=== PATIENT | male | born 1930 | race Caucasian/White ===

== ENCOUNTER 2017-07-05 19:09 | Emergency (ER) | payer MEDICARE, BC ==
[2017-07-05 19:17] VITALS: TEMP 96.2
[2017-07-05] MEDS ORDERED: GELATIN SPONGE,ABSORB (SMALL) 1 EACH SPONGE TOPICAL STA ×2 (19:31→20:15)
--- NOTE | 2017-07-05 19:45 | ED ---
ENT HPI - General Chief complaint: ENT Stated complaint: Oral Bleeding Time Seen by Provider: 07/05/17 19:18 Source: patient, RN notes reviewed Mode of arrival: wheelchair Limitations: no limitations - History of Present Illness Initial comments: This is an 86-year-old male who presents to the emergency department with chief complaint of excessive bleeding due to recent dental work. Patient's is at bedside and contributes to history. states that at 9 AM patient had a tooth extraction by dentist, Dr. Mayo in [place]. states that patient stopped his Eliquis 1-1/2 weeks ago. After the procedure patient continued to have oral bleeding. They returned to the dentist later this afternoon and the dentist repacked the site. states that she has been changing out the gauze every 30 minutes due to active bleeding. Denies fever, chills, chest pain , shortness of breath, abdominal pain, nausea or vomiting, constipation or diarrhea, dysuria or hematuria, numbness or tingling, headache or vision changes. - Related Data Home Medications Medication Instructions Recorded Confirmed Acetaminophen Tab [Tylenol] 325 mg PO DIRECTED PRN 02/18/14 03/21/14 Atenolol 50 mg PO DAILY 02/18/14 03/21/14 Furosemide [Lasix] 40 mg PO DAILY 02/18/14 03/21/14 Levothyroxine Sodium [Synthroid] 125 mcg PO DAILY 02/18/14 03/21/14 Tamsulosin HCl [Flomax] 0.4 mg PO HS 02/18/14 03/21/14 Warfarin [Coumadin] 2.5 mg PO HS 02/18/14 03/19/14 hydrALAZINE HCL [Apresoline] 25 mg PO BID 02/18/14 03/21/14 Lovastatin [Mevacor] 40 mg PO DAILY 03/21/14 03/21/14 Allergies Allergy/AdvReac Type Severity Reaction Status Date / Time No Known Allergies Allergy Verified 07/05/17 19:17 Review of Systems ROS Statement: Those systems with pertinent positive or pertinent negative responses have been documented in the HPI. ROS Other: All systems not noted in ROS Statement are negative. Past Medical History Past Medical History: Asthma, Cancer, Diabetes Mellitus, Hearing Disorder / Deafness, Thyroid Disorder Additional Past Medical History / Comment(s): SEE DR GUNDLAPALLI H&P, HX PROSTATE CA History of Any Multi-Drug Resistant Organisms: None Reported Past Surgical History: Hernia Repair Additional Past Surgical History / Comment(s): RIGHT CAROTIDENTARCECTOMY X2, JERED HERNIA REPAIR, JERED CATARACT SX,SURGICAL REPAIR RT ARM Past Anesthesia/Blood Transfusion Reactions: No Reported Reaction Additional Past Anesthesia/Blood Transfusion Reaction / Comment(s): UNK FAMILY HX Past Psychological History: No Psychological Hx Reported Smoking Status: Former smoker General Exam - General Exam Comments Initial Comments: General: Awake and alert, well-developed; in no apparent distress. Lying on ED stretcher with at bedside. HEENT: Head atraumatic, normocephalic. Pupils are equal, round and reactive to light. Extraocular movements intact. Dried blood surrounding the lips. There is active bleeding from molar extraction site on bottom left of mouth. The gauze was removed and there was large clot present; gauze saturated in blood. Poor dentition. Neck: Supple. Normal ROM. Cardiovascular: Regular rate and rhythm. No murmurs, rubs or gallops. Chest symmetrical. Respiratory: Lungs clear to auscultation bilaterally. No wheezes, rales or rhonchi. Normal respiratory effort with no use of accessory muscles. Skin: [place], warm and dry without rashes or lesions. Neurological: Alert and oriented x3. CN II-XII grossly intact. Speech is fluent and answers are appropriate. No focal neuro deficits. Psychiatric: Normal mood and affect. No overt signs of depression or anxiety noted. Limitations: no limitations Course Vital Signs 07/05/17 07/05/17 19:14 20:20 Temperature 96.2 F L Pulse Rate 82 61 Respiratory 16 18 Rate Blood Pressure 124/59 129/66 O2 Sat by Pulse 100 94 L Oximetry - Reevaluation(s) Reevaluation #1: Gelfoam was placed at active bleeding site. Patient was instructed to bite down onto gauze and Gelfoam. On reevaluation, active bleeding has stopped. Will re-evaluate in 10-15 minutes. 07/05/17 20:02 07/05/17 20:25 There continues to be no active bleeding. Patient is doing well and is in no acute distress. Medical Decision Making - Medical Decision Making This is an 86-year-old male who presents to the emergency room with chief complaint of excessive mouth bleeding. Patient had a left lower molar extracted this morning and has had active bleeding ever since. reports he has been off of his Eliquis for the past week and a half. Gelfoam was placed at active bleeding site. On re-evaluation, bleeding has stopped. Patient will be discharged home with Gelfoam and gauze in mouth that he is to continue to apply pressure to. He is to follow-up with dentist tomorrow morning. Patient and are in agreement and voiced understanding. All questions were answered. Disposition Clinical Impression: Postoperative bleeding from mouth Disposition: HOME SELF-CARE Condition: Good Additional Instructions: Please follow up with your dentist Dr. Mayo tomorrow morning. Please leave in and apply pressure to Gelfoam and gauze as long as possible tonight. Please follow up with primary care provider within 1-2 days. Return to emergency department if symptoms should worsen or any concerns arise. Referrals: Luke Clayton MD [Primary Care Provider] - 1-2 days Time of Disposition: 20:30
[2017-07-05 20:23] VITALS: BP 129/66; PULSE 61; RESP 18
== END 2017-07-05 20:39 | disposition home or self-care (01) ==
LOC: EC 19:09
DX: K91.840 Postprocedural hemorrhage of a digestive system organ or structure following a digestive system procedure (principal); E07.9 Disorder of thyroid, unspecified; Z87.891 Personal history of nicotine dependence; Z79.01 Long term (current) use of anticoagulants; Z79.899 Other long term (current) drug therapy
CPT/HCPCS: 99283